=== PATIENT | female | born 1990 | race Caucasian/White ===

== ENCOUNTER 2016-04-17 03:33 | Inpatient (IN) | payer OTHER ==
[~2016-04-17] VITALS: Ht 160 cm; Wt 71.2 kg
--- NOTE | 2016-04-17 04:37 | History & Physical ---
General Information and HPI MD Statement: I have seen and personally examined [place] and documented this H&P. The patient is a 26 year old female at [39] weeks and [6] days gestation who presented with a chief complaint of [labor]. Source of Information: patient Exam Limitations: no limitations History of Present Illness: 26 year old @ 39+6 presents in active labor. 7cm on admission. uncom; licated . 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 Cardiovascular: Reports: no symptoms. Respiratory: Reports: no symptoms. GI: Reports: no symptoms. Genitourinary: Reports: see HPI. Musculoskeletal: Reports: no symptoms. Skin: Reports: no symptoms. Neurological/Psychological: Reports: no symptoms. Hematologic/Endocrine: Reports: no symptoms. Immunologic/Allergic: Reports: no symptoms. All Other Systems: Reviewed and Negative Exam & Diagnostic Data Last 24 Hrs of Vital Signs/I&O Intake & Output 04/17 0800 04/17 0000 04/16 1600 Intake Total Output Total Balance Patient 157 lb Weight Obstetric Exam Wgt Gained During : 35 Pelvimetry: na Dilation (cm): 7 Effacement (%): 90 Station: -1 Membranes: intact Fluid: unknown Fundal Height (cm): 40 Multiple Gestation? No Contractions: q2 Infant #1 - FHR Baseline: 130 Category: 1 Estimated Weight: 7 Presentation: vtx Patient for Induction? No Labs Blood Type & Rh: o pos Antibody Screen: neg Hct/Hgb & Platelets #1: 12.2 225 38 Hct/Hgb & Platelets #2: 11.2 208 34.6 Rubella: imm VDRL #1: neg VDRL #2: neg HbsAg: neg HIV #1: neg HIV #2 neg 1 Hr P Group B Strep: neg Initial Ultrasound: 8w Anatomy Ultrasound: 19.4, post plac, xy Genetic Testing: declined first trim screen, cf neg, hgb elec neg Assessment/Plan Assessment/Plan: 26 year old @ 39+6 weeks. active labor. uncomplicated . FHR reassuring. anticipate . pt now sitting up for epiudral. As Ranked By This Provider Problem List: 1. Term Core Measures/Miscellaneous Venous Thromboembolism VTE Risk Factors: / VTE Contraindications: No Contraindications VTE Prophylaxis Ordered Inpt: Early Ambulation VTE Diagnosis: No Beta Bernie Is Beta Bernie a Home Med? No Antibiotics Is Patient on Antibiotics? No Attending MD Review Statement Attending Statement Attending MD Statement: examined this patient, discussed w/nursing
[2016-04-17 04:46] LABS: ABSOLUTE BASOPHIL COUNT 0 /CUMM (0.0-0.2); ABSOLUTE EOSINOPHIL COUNT 0 /CUMM (0.0-0.7); ABSOLUTE GRANULOCYTE CT 9.8 /CUMM (1.4-6.5); ABSOLUTE LYMPH COUNT 1.7 /CUMM (1.2-3.4); ABSOLUTE MONOCYTE COUNT 0.6 /CUMM (0.10-0.60); BASOPHIL % 0.4 % (0.0-2.0); EOSINOPHIL % 0.2 % (0-5); HEMATOCRIT 40.7 % (37-47); MEAN CORPUSCULAR HGB 24.2 PG (27.0-31.0); MEAN CORPUSCULAR HGB CONC 32.3 G/DL (33.0-37.0); MEAN CORPUSCULAR VOLUME 75.1 FL (81.0-99.0); MEAN PLATELET VOLUME 11.2 FL (7.4-10.4); RBC DISTRIBUTION WIDTH 15.9 % (11.5-14.5); RED BLOOD CELL CT 5.41 /CUMM (4.20-5.40); WHITE BLOOD CELL COUNT 12.1 /CUMM (4.8-10.8)
[2016-04-17 05:10] LABS: PLATELET COUNT 236 /CUMM (130-400)
--- NOTE | 2016-04-17 09:11 | PN- OBGYN ---
Surgical Brief Attending Note Brief Attending Note: Resting fine ?? some rectal pressure Afebrile VSS FHR 140's Cat I contractions spaced out to Q 3 to 4 min PT Fully @ 6:45 -1 station then attempt @ pushing unsuccessful - VTX now @ 0 station but no sense of "where to push" despite assist w/ manual vaginal pressure and detailed coaching. after 3 contractions pt reassured that "now" is too early and she shoule labor down for a longer time A.) dysfunctional labor pattern w/ contractions spacing out- discussed w/ pt and need for pitocin augmentation. will allow to labor down for a little longer. FHR reassuring Plan - anticipate OTTO Williamson MD
--- NOTE | 2016-04-17 11:25 | Labor & Delivery Summary ---
Delivery Summary Vaginal Delivery: Vaginal: VERTEX SPONTANEOUS VAGINAL DELIVERY Episiotomy/Lacerations: Episiotomy/Lacerations: none Placenta: Placenta: spontanteous, normal, 3 vessel, NUCHAL CORD X 1 Anesthesia: EPIDURAL Cord PH Value: N/A Baby's Weight: BABY BOY 6# 15 oz Apgars - 1 Min: 8 Apgars - 5 Min: 9 Additional Comments: Pt progressed to fully @ 6:59 but had no vaginal pressure, was allowed to labor down. @ 8:45 pt tried pushing but was unsuccessful with her efforts. Contractions had scaped out to Q 3 to 4 minutes so pitocin augmentation was started. FHR 120 -130' Cat I Pt had increased rectal pressure @ 09:59 and began pushing. LV Male (OP) over an intact perineum @ 10:54. WT 6#15 oz APGARS 8/9/9/ Nuchal cord x 1 easily reduced. Placenta delivered spontaneously intact, nl config 3 VC No cervix or Vag lacerations RH + Immune Cheng Rosas
[2016-04-17 12:09] VITALS: BP 139/82
[2016-04-18 09:02] LABS: ABSOLUTE BASOPHIL COUNT 0 /CUMM (0.0-0.2); ABSOLUTE EOSINOPHIL COUNT 0.2 /CUMM (0.0-0.7); ABSOLUTE MONOCYTE COUNT 0.8 /CUMM (0.10-0.60); BASOPHIL % 0.3 % (0.0-2.0); MEAN CORPUSCULAR HGB 24.4 PG (27.0-31.0)
[2016-04-18 09:10] LABS: ABSOLUTE GRANULOCYTE CT 7.4 /CUMM (1.4-6.5); ABSOLUTE LYMPH COUNT 2.6 /CUMM (1.2-3.4); EOSINOPHIL % 1.9 % (0-5); GRANULOCYTE % 67.2 % (42.2-75.2); MEAN CORPUSCULAR VOLUME 76.2 FL (81.0-99.0); PLATELET COUNT 165 /CUMM (130-400); RBC DISTRIBUTION WIDTH 15.9 % (11.5-14.5); RED BLOOD CELL CT 4.35 /CUMM (4.20-5.40)
[2016-04-18 09:11] LABS: HEMATOCRIT 33.1 % (37-47)
--- NOTE | 2016-04-18 09:35 | PN- OBGYN ---
Surgical Brief Attending Note Brief Attending Note: NO COMPLAINTS. DOING WELL. AMBULATING/VOIDING/TOLERATING PAIN AND PO. MOD LOCHIA. +NURSING VSSAF FF@U-1 EXT: NO CALF TENDERNESS, 1+PEDAL EDEMA Vital Signs Date Time Temp Pulse Resp B/P Pulse O2 O2 Flow FiO2 Ox Delivery Rate 04/17 1209 139/82 04/17 0925 100.1 Laboratory Tests 04/18/16 0713: CBC w Diff NO MAN DIFF REQ, RBC 4.35, MCV 76.2 L, MCH 24.4 L, RDW 15.9 H, MPV 11.0 H, Gran % 67.2, Lymphocytes % 23.5, Monocytes % 7.1, Eosinophils % 1.9, Basophils % 0.3, Absolute Granulocytes 7.4 H, Absolute Lymphocytes 2.6, Absolute Monocytes 0.8 H, Absolute Eosinophils 0.2, Absolute Basophils 0, PUBS MCHC 32.0 L Orders Procedure Date/time Status CBC WITHOUT DIFFERENTIAL 04/18 0600 Complete Regular Diet 04/17 D Active Pathway - chart 04/17 1122 Active Vital Signs 04/17 1122 Active Activity/Ambulation 04/17 1122 Active TRANSFER ORDERS 04/17 1119 Complete URINE CREATININE, SPOT 04/17 0524 Complete URINALYSIS 04/17 0524 Complete URIC ACID 04/17 455 Complete LDH (LACT ACID DEHYDROGENASE) 04/17 455 Complete CREATININE 04/17 455 Complete TRNSFRASE ASPART AMINO 04/17 455 Complete TRNSFRAS ALANINE AMINO 04/17 455 Complete Pathway - chart 04/17 358 Active Admit to inpatient 04/17 358 Active Patient Data 04/17 358 Active Vital Signs 04/17 358 Complete OB: Monitoring 04/17 358 Complete Activity/Ambulation 04/17 358 Complete URINALYSIS 04/17 358 Complete CBC WITHOUT DIFFERENTIAL 04/17 358 Complete TYPE & SCREEN (NOT X-MATCH) 04/17 358 Complete Childbirth Center Pt Data 04/17 UNK Active A/P PPD1. DOING WELL. PLAN ROUTINE CARE. COUNSELED ON CIRCUMCISION.
[2016-04-19] MEDS ORDERED: IBUPROFEN800 M1 PO (09:01)
[2016-04-19] MEDS ORDERED: PRENATAL TABLE1 EAC2 PO (09:01)
--- NOTE | 2016-04-19 09:07 | PN- Post Delivery/GYN ---
Subjective Subjective: dOING WELL READY FOR DISCHARGE HOME Review of Systems: NEG FOR CARDIAC PULMONARY, GI COMPLAINTS Objective Last 24 Hrs of Vital Signs/I&O AFEBRILE VSS Physical Exam General Appearance Alert, Oriented X3, Cooperative, No Acute Distress Skin No Significant Lesion Cardiovascular Regular Rate Lungs Normal Air Movement Abdomen Normal Bowel Sounds, Soft, No Tenderness, No Hepatospenomegaly, FUNDUS FRIM 2 TO 3 FB BELOW UMBILICUS UTERUS NONTENDER Neurological Normal Gait, Normal Speech Extremities No Tenderness/Swelling Reproductive (FEMALE) Normal female genitalia, AVGE LOCHIA Current Medications: Current Medications Sig/Pino Start time Last Medication Dose Route Stop Time Status Admin Acetaminophen 650 MG Q4P PRN 04/17 1130 AC PO Docusate Sodium 100 MG .STK-MED ONE 04/18 2229 DC PO 04/18 2230 Docusate Sodium 100 MG BID PRN 04/17 1130 AC 04/18 PO 2236 Hydroxyzine HCl 100 MG AT BEDTIME NEED.. 04/17 1130 AC PO Ibuprofen 800 MG .STK-MED ONE 04/18 2228 DC PO 04/18 2229 Ibuprofen 800 MG .STK-MED ONE 04/18 1613 DC PO 04/18 1614 Ibuprofen 800 MG Q6P PRN 04/17 1130 AC 04/19 PO 0631 Magnesium Hydroxide 30 ML DAILY PRN 04/17 1130 DC PO 04/18 1001 Oxycodone/ 1 TAB Q3P PRN 04/17 1130 AC Acetaminophen PO Tetanus/Reduced 0.5 ML ONCE ONE 04/18 1445 DC 04/18 Diphtheria/Acell IM 04/18 1446 1602 Pertussis Assessment/Plan Assessment/Plan STABLE PPD #2 DISCHARGE HOME ROUTINE PP CARE F/UP IN 2 AND 6 WKS Problem List: 1. Term 2. Term of male Attending MD Review Statement Attending Statement Attending MD Statement: examined this patient, discussed with family, discussed with nursing Attending Assessment/Plan: Jimmie HYATT MD
== END 2016-04-19 11:48 | DRG 560 ==
LOC: CBCO 03:33 → GNO 03:48
PROVIDERS: Obstetrics & Gynecology; ADMIT Obstetrics & Gynecology
PROC: 10E0XZZ Delivery of Products of Conception, External Approach (ICD-10-PCS; principal; 2016-04-17)
DX: O62.9 Abnormality of forces of labor, unspecified (principal); Z3A.39 39 weeks gestation of pregnancy; Z37.0 Single live birth; O69.81X0 Labor and delivery complicated by cord around neck, without compression, not applicable or unspecified
CPT/HCPCS: GNOS; 36415; 81001; 81003; 82570; J0131; J1885; J7120

== ENCOUNTER 2016-06-20 22:02 | Emergency (ER) | payer OTHER ==
[~2016-06-20 22:02] MED LIST: IBUPROFEN800 M1 PO; PRENATAL TABLE1 EAC2 PO
[2016-06-20 22:16] VITALS: BP 131/58
--- NOTE | 2016-06-20 22:48 | RADIOLOGY REPORT ---
EXAMINATION: XR KNEE, RIGHT CLINICAL INFORMATION: Patellar dislocation now reduced. COMPARISON: None TECHNIQUE: 5 views of the right knee. FINDINGS: Bones and soft tissues are normal. No fracture or joint effusion. Alignment is anatomic. Joint spaces are well maintained. No abnormal soft tissue calcification. IMPRESSION: Normal right knee.
--- NOTE | 2016-06-20 23:09 | ED UPPER/LOWER EXTREMITY COMPL ---
See Addendum History of Present Illness General Chief Complaint: Lower Extremity Injury Stated Complaint: RIGHT KNEE PAIN Source: patient Exam Limitations: no limitations Vital Signs & Intake/Output Vital Signs & Intake/Output Vital Signs Date Time Temp Pulse Resp B/P B/P Pulse O2 O2 Flow FiO2 Mean Ox Delivery Rate 06/21 2215 98.6 69 18 131/58 98 Room Air 06/20 2208 97 Room Air Allergies Coded Allergies: Penicillins (Intermediate, ABDOMINAL CRAMPING 04/17/16) Reconcile Medications Ibuprofen 800 MG TABLET 800 MG PO Q6P PRN UTERINE CRAMPING Vit No.130/Iron/FA ( Tablet) 27 MG IRON-800 MCG TABLET 1 TAB PO DAILY VITAMIN SUPPORT Triage Note: PT BIBA FROM HOME AFTER WALKING AND HAVING A FEELING OF HER RIGHT KNEE "POPPING OUT". NO DEFORMITY OR SWELLING AT THIS TIME Triage Nurses Notes Reviewed? yes Onset: Abrupt Duration: minute(s):, constant, continues in ED Timing: recent history Severity: moderate, severe Pain/Injury Location: Right: Knee. No Modifying Factors: none : No Patient currently breastfeeds: Yes HPI: 18-year-old female comes into emergency room for further evaluation of right knee pain. Patient reports that she was home and while she was trying to climb around her ottoman she reports that her kneecap dislocated. She reports that this is happened to her in the past. She reports it back in place now. Patient came in by ambulance. Sharp pain. Continuous. Nonradiating. Patient reports is never happened to her right knee but has happened to her left knee in the past. (CINDY SOLITARIO) Past History Travel History Traveled to [place] past 21 day No Medical History Any Pertinent Medical History? 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 No (CINDY SOLITARIO) Review of Systems Review of Systems Constitutional: Reports: no symptoms. EENTM: Reports: no symptoms. Respiratory: Reports: no symptoms. Cardiovascular: Reports: no symptoms. Gastrointestinal/Abdominal: Reports: no symptoms. Genitourinary: Reports: no symptoms. Musculoskeletal: Reports: see HPI. Skin: Reports: no symptoms. Neurological/Psychological: Reports: no symptoms. Hematologic/Endocrine: Reports: no symptoms. Immunological: Reports: no symptoms. All Other Systems: Reviewed and Negative (CINDY SOLITARIO) Physical Exam Physical Exam General Appearance: well developed/nourished, mild distress Head: atraumatic Eyes: Bilateral: normal appearance. Ears, Nose, Throat: normal ENT inspection, hearing grossly normal Neck: normal inspection Cardiovascular/Respiratory: no respiratory distress Back: normal inspection Knee Right: soft tissue tenderness, limited range of motion Foot Right: normal inspection, normal range of motion Neurologic/Tendon: normal sensation, normal motor functions, normal tendon functions, responds to pain, no evidence tendon injury, no pulse deficit Skin: intact, normal color, warm/dry Lymphatic: no anterior cervical alberto (CINDY SOLITARIO) Progress Differential Diagnosis: contusion, dislocation, DVT, fracture, gout, septic arthritis, sprain, tendon injury Plan of Care: Orders Procedure Date/time Status Durable Medical Equipment 06/21 2307 Active Diagnostic Imaging: Viewed by Me: Radiology Read. Discussed w/RAD: Radiology Read. Radiology Impression: SERVICE DATE: 06/20/16 EXAM TYPE: RAD - XRY-KNEE COMPLETE RIGHT EXAMINATION: XR KNEE, RIGHT CLINICAL INFORMATION: Patellar dislocation now reduced. COMPARISON: None TECHNIQUE: 5 views of the right knee. FINDINGS: Bones and soft tissues are normal. No fracture or joint effusion. Alignment is anatomic. Joint spaces are well maintained. No abnormal soft tissue calcification. IMPRESSION: Normal right knee. DICTATED BY: EMILEE QUINTERO MD DATE/ TIME DICTATED:06/20/162243 FARM ASSISTANT:GILDA DATE/TIME TRANSCRIBED: 06/20/162243 CONFIDENTIAL, DO NOT COPY WITHOUT APPROPRIATE AUTHORIZATION. (CINDY SOLITARIO) Departure Departure Disposition: HOME OR SELF CARE Condition: Stable Clinical Impression Primary Impression: Right knee sprain Secondary Impressions: Patellar dislocation Referrals: HARRIS DURAN MD UNKNOWN (PCP/Family) Additional Instructions: Ice. Rest. Motrin for pain. Elevation. Follow-up with orthopedic doctor provided if not better in 3-5 days. If symptoms do not improve you'll require further evaluation with possible repeat x-rays as well as evaluation by technical services specialist. Sprains can last anywhere from days to weeks. No high impact running or jumping if you have an ankle sprain or any type of lower extremity sprain. Return to normal activity only after symptoms have resolved. Please go over all results of today's visit with your primary care doctor. Contact your primary care doctor to let them know you were here in the emergency room. There may be nonspecific findings which may not be related to your visit today here in the emergency room but may require further evaluation and chronic monitoring by your primary care doctor. If you had a laceration today the chance of foreign body always remains. You should follow-up with your primary care doctor for recheck in 3-5 days for a wound check. If you had an x-ray done there is a chance that a fracture could have been missed on initial read and you should follow-up with your primary care doctor for repeat x-rays if symptoms persist. If your blood pressure was elevated here in the emergency room please have rechecked by her primary care doctor within the next 48 hours by your primary care doctor. If you were prescribed a narcotic here in the emergency room or any type of controlled substances you're not allowed to drive while taking this medication or operate any type of heavy machinery. Narcotics can make you feel lightheaded dizziness nausea and can cause constipation. You may need to roller picker a stool softener. Thank you for choosing [facility] emergency room. Please return to the emergency room immediately if you have any other concerns worsening of symptoms. Departure Forms: Customer Survey General Discharge Information Comments 06/20/2016 11:17:13 PM Patient clinically looks well. Stay nonweightbearing. Follow-up with orthopedic doctor. Return if any concerns worsening symptoms. I stress elevation. (CINDY SOLITARIO) PA/EXHIBIT CARPENTER Co-Sign Statement Statement: ED Attending supervision documentation- [] I saw and evaluated the patient. I have also reviewed all the pertinent lab results and diagnostic results. I agree with the findings and the plan of care as documented in the PA's/EXHIBIT CARPENTER's documentation. x I have reviewed the ED Record and agree with the PA's/EXHIBIT CARPENTER's documentation. [] Additions or exceptions (if any) to the PAs/EXHIBIT CARPENTER's note and plan are summarized below: [] (ROYAL CARTY,CM)
== END 2016-06-20 23:24 ==
LOC: ERH 22:02
DX: S83.006A Unspecified dislocation of unspecified patella, initial encounter (principal); S83.91XA Sprain of unspecified site of right knee, initial encounter; X58.XXXA Exposure to other specified factors, initial encounter; Y92.009 Unspecified place in unspecified non-institutional (private) residence as the place of occurrence of the external cause; Y93.9 Activity, unspecified
CPT/HCPCS: 73562-RT